=== PATIENT | male | born 1995 | race African-American/Black ===

== ENCOUNTER 2019-05-16 09:41 | Inpatient (IN) | payer OTHER ==
[2019-05-16 10:05] VITALS: BMI 32.6
--- NOTE | 2019-05-16 10:26 | HP ---
CIWA Score Nausea/Vomitin-Mild Nausea/No Vomiting Muscle Tremors: 2 Anxiety: 3 Agitation: 3 Paroxysmal Sweats: No Perspiration Orientation: 0-Oriented Tacttile Disturbances: 1-Very Mild Itch/Numbness Auditory Disturbances: 0-None Visual Disturbances: 1-Very Mild Sensitivity Headache: 2-Mild CIWA-Ar Total Score: 13 - Admission Criteria OASAS Guidelines: Admission for Medically Managed Detox: Requires at least one of the followin. CIWA greater than 12 2. Seizures within the past 24 hours 3. Delirium tremens within the past 24 hours 4. Hallucinations within the past 24 hours 5. Acute intervention needed for co occurring medical disorder 6. Acute intervention needed for co occurring psychiatric disorder 7. Severe withdrawal that cannot be handled at a lower level of care (continued vomiting, continued diarrhea, abnormal vital signs) requiring intravenous medication and/or fluids 8. Admission ROS BHS - HPI Chief Complaint: i need help to stop drinking alcohol Allergies/Adverse Reactions: Allergies Allergy/AdvReac Type Severity Reaction Status Date / Time milk Allergy Severe Verified 05/16/19 09:55 peanut Allergy Severe Verified 05/16/19 09:55 Penicillins Allergy Rash Verified 05/16/19 09:55 History of Present Illness: this 24 years old male with alcohol dependence,seeking detox,withdrawal symptom, first visit to this facility had previous admission at [facility] in 2017 history of asthma eczema nicotine dependence denied seizure,denied syncope longest period 10 months plan for out patient program after detox homeless,unemployed Exam Limitations: No Limitations - Ebola screening Have you traveled outside of the country in the last 21 days: No Have you had contact with anyone from an Ebola affected area: No Do you have a fever: No - Review of Systems Constitutional: Night Sweats EENT: reports: Nose Congestion Respiratory: reports: No Symptoms reported Cardiac: reports: No Symptoms Reported GI: reports: Diarrhea, Nausea, Abdominal cramping : reports: No Symptoms Reported Musculoskeletal: reports: Back Pain, Muscle Pain Integumentary: reports: Dryness Neuro: reports: Headache, Tremors Endocrine: reports: No Symptoms Reported Hematology: reports: No Symptoms Reported Psychiatric: reports: No Sypmtoms Reported, Judgement Intact, Mood/Affect Appropiate, Orientated x3, Depressed, other (adhd no med) Patient History - Patient Medical History Hx Anemia: No Hx Asthma: Yes (on albuterol inhaler) Hx Chronic Obstructive Pulmonary Disease (COPD): No Hx Cancer: No Hx Cardiac Disorders: No Hx Congestive Heart Failure: No Hx Hypertension: No Hx Hypercholesterolemia: No Hx Pacemaker: No HX Cerebrovascular Accident: No Hx Seizures: No Hx Dementia: No Hx Diabetes: No Hx Gastrointestinal Disorders: No Hx Liver Disease: No Hx Genitourinary Disorders: No Hx Sexually Transmitted Disorders: No Hx Renal Disease (ESRD): No Hx Thyroid Disease: No Hx Human Immunodeficiency Virus (HIV): No (last 12/01 negative) Hx Hepatitis C: No Hx Depression: Yes (no med) Hx Suicide Attempt: No Hx Bipolar Disorder: No Hx Schizophrenia: No Other Medical History: no sucidal,no homicidal,eczema - Patient Surgical History Past Surgical History: No - PPD History Previous Implant?: Yes Documented Results: Negative w/o proof Implanted On Prior [facility] Admission?: No PPD to be Administered?: Yes - Smoking Cessation Smoking history: Current every day smoker Have you smoked in the past 12 months: Yes Aproximately how many cigarettes per day: 2 Cigars Per Day: 0 Hx Chewing Tobacco Use: No Initiated information on smoking cessation: Yes 'Breaking Loose' booklet given: 05/16/19 - Substance & Tx. History Hx Alcohol Use: Yes Hx Substance Use: No Substance Use Type: Alcohol Hx Substance Use Treatment: Yes ([facility]) - Substances abused Alcohol Substance route: Oral Frequency: Daily Amount used: 1 liter of vodka Age of first use: 12 Date of last use: 05/16/19 Admission Physical Exam BHS - Vital Signs Vital Signs: Vital Signs - 24 hr 05/16/19 05/16/19 09:54 10:09 Temperature 97.0 F L 97.0 F L Pulse Rate 73 73 Respiratory 20 20 Rate Blood Pressure 139/78 139/78 - Physical General Appearance: Yes: Moderate Distress, Tremorous, Irritable, Sweating, Anxious HEENTM: Yes: Normal ENT Inspection, GOLDEN, Pharynx Normal Respiratory: Yes: Lungs Clear, Normal Breath Sounds, No Respiratory Distress Neck: Yes: Supple, Trachea in good position Breast: Yes: Within Normal Limits Cardiology: Yes: Within Normal Limits, Regular Rhythm, Regular Rate, S1, S2 Abdominal: Yes: Within Normal Limits, Normal Bowel Sounds, Non Tender, Flat, Soft Genitourinary: Yes: Within Normal Limits Back: Yes: Muscle Spasm Extremities: Yes: Tremors Neurological: Yes: metal cutter II-XII NML intact, Fully Oriented, Alert Integumentary: Yes: Dry, Other (eczema) Lymphatic: Yes: Within Normal Limits - Diagnostic (1) Alcohol dependence with uncomplicated withdrawal Current Visit: Yes Status: Acute (2) Alcohol dependence with uncomplicated intoxication Current Visit: Yes Status: Acute (3) Asthma Current Visit: Yes Status: Acute (4) Eczema Current Visit: Yes Status: Acute (5) ADHD Current Visit: Yes Status: Acute (6) Depression Current Visit: Yes Status: Acute Cleared for Admission S - Detox or Rehab [facility] Level of Care: Medically Managed Detox Regimen/Protocol: Librium Breathalyzer - Breathalyzer Breathalyzer: 0.232 Urine Drug Screen - Test Device Lot number: [id number] Expiration date: 01/13/20 - Control Is test valid?: Yes - Results Drug screen NEGATIVE: Yes Inpatient Rehab Admission - Rehab Decision to Admit Inpatient rehab admission?: No
[2019-05-16] MEDS ORDERED: BISMUTH SUBSALICYLATE 262 MG/15 ML BTL PO PRN (10:36)
[2019-05-16] MEDS ORDERED: MENTHOL/PHENOL 1 EACH UD MM PRN (10:36)
[2019-05-16] MEDS ORDERED: METHOCARBAMOL 500 MG TABLET PO PRN (10:36)
[2019-05-16] MEDS ORDERED: IBUPROFEN 400 MG TABLET (FP) PO PRN (10:36)
[2019-05-16] MEDS ORDERED: MAGNESIUM CITRATE 300 ML BOTTLE PO PRN (10:36)
[2019-05-16] MEDS ORDERED: MAGNESIUM HYDROX 2400MG/30ML ORAL SUSPENSION 30 ML CUP PO PRN (10:36)
[2019-05-16] MEDS ORDERED: chlordiazePOXIDE HCL 25 MG CAPSULE PO PRN (10:36)
[2019-05-16] MEDS ORDERED: ACETAMINOPHEN 325 MG TABLET (FP) PO PRN ×2 (10:36)
[2019-05-16] MEDS ORDERED: MAG HYDROX/AL HYDROX/SIMETH 30 ML UNIT-DOSE CUP PO PRN (10:36)
[2019-05-16] MEDS ORDERED: hydrOXYzine PAMOATE 25 MG CAPSULE (FP) PO PRN (10:36)
[2019-05-16] MEDS ORDERED: TRIAMCINOLONE ACET 0.1% OINT 15 GM TUBE TP SCH (10:45)
[2019-05-16] MEDS: TRIAMCINOLONE ACET 0.1% OINT 15 GM TUBE TP SCH ×2 (14:43→22:13)
[2019-05-16 16:30] LABS: HEMATOCRIT 39.8 % (35.4-49); HEMOGLOBIN 13.7 GM/dL (11.7-16.9); MCH 31.9 pg (25.7-33.7); MCHC 34.4 g/dl (32.0-35.9); MEAN CELL VOLUME 92.8 fl (80-96); MEAN PLT VOLUME 8.2 fl (7.5-11.1); PLATELET COUNT 257 K/MM3 (134-434); RBC 4.29 M/mm3 (4.00-5.60); WHITE BLOOD COUNT 6.8 K/mm3 (4.0-10.0)
[2019-05-16 16:54] LABS: ALBUMIN 3.5 g/dl (3.4-5.0); BILIRUBIN,TOTAL 0.3 mg/dL (0.2-1); CALCIUM 8.7 mg/dL (8.5-10.1); CREATININE 0.9 mg/dL (0.55-1.3); TOT PROT 7.7 g/dl (6.4-8.2)
[2019-05-16] MEDS: chlordiazePOXIDE HCL 25 MG CAPSULE PO SCH ×2 (17:06→22:13)
[2019-05-16 18:11] LABS: SICKLE CELL SCREEN NEGATIVE (NEGATIVE)
[2019-05-16] MEDS: THIAMINE HCL 100 MG TABLET (FP) PO SCH (22:13)
[2019-05-16] MEDS: MELATONIN 5 MG TABLETS PO PRN (22:14)
[2019-05-17] MEDS: chlordiazePOXIDE HCL 25 MG CAPSULE PO SCH ×4 (05:14→22:09)
[2019-05-17] MEDS: TRIAMCINOLONE ACET 0.1% OINT 15 GM TUBE TP SCH ×2 (10:18→22:08)
[2019-05-17] MEDS: PRENATAL VITAMINS W/ FOLIC ACID TABLET (FP) PO SCH (10:18)
--- NOTE | 2019-05-17 10:30 | PN ---
S CIWA - CIWA Score Nausea/Vomitin-No Nausea/No Vomiting Muscle Tremors: None Anxiety: 3 Agitation: 0-Normal Activity Paroxysmal Sweats: 3 Orientation: 0-Oriented Tacttile Disturbances: 1-Very Mild Itch/Numbness Auditory Disturbances: 0-None Visual Disturbances: 0-None Headache: 2-Mild CIWA-Ar Total Score: 9 S Progress Note (SOAP) Subjective: c/o anxiety, headache, interrupted sleep, and sweats. Objective: 05/17/19 10:29 Vital Signs 05/17/19 05/17/19 05/17/19 03:30 06:05 09:08 Temperature 97.5 F L 97.1 F L Pulse Rate 77 80 Respiratory 18 18 18 Rate Blood Pressure 137/77 139/82 Lab Results WBC 6.8 K/mm3 (4.0-10.0) 05/16/19 11:00 RBC 4.29 M/mm3 (4.00-5.60) 05/16/19 11:00 Hgb 13.7 GM/dL (11.7-16.9) 05/16/19 11:00 Hct 39.8 % (35.4-49) 05/16/19 11:00 MCV 92.8 fl (80-96) 05/16/19 11:00 MCHC 34.4 g/dl (32.0-35.9) 05/16/19 11:00 RDW 19.0 % (11.9-15.9) H 05/16/19 11:00 Plt Count 257 K/MM3 (134-434) 05/16/19 11:00 Sodium 134 mmol/L (136-145) L 05/16/19 11:00 Potassium 3.0 mmol/L (3.5-5.1) L 05/16/19 11:00 Chloride 95 mmol/L (98-107) L 05/16/19 11:00 Carbon Dioxide 26 mmol/L (21-32) 05/16/19 11:00 Anion Gap 14 MMOL/L (8-16) 05/16/19 11:00 BUN 5.0 mg/dL (7-18) L 05/16/19 11:00 Creatinine 0.9 mg/dL (0.55-1.3) 05/16/19 11:00 Random Glucose 85 mg/dL (74-106) 05/16/19 11:00 Calcium 8.7 mg/dL (8.5-10.1) 05/16/19 11:00 Labs noted. Assessment: 05/17/19 10:30 AOX3, in no acute respiratory distress. Full ROM, ambulating in the unit. Withdrawal symptoms. Plan: continue detox.
[2019-05-17] MEDS: THIAMINE HCL 100 MG TABLET (FP) PO SCH (22:09)
[2019-05-17] MEDS: MELATONIN 5 MG TABLETS PO PRN (22:09)
[2019-05-18] MEDS: chlordiazePOXIDE HCL 25 MG CAPSULE PO SCH ×4 (05:21→22:30)
[2019-05-18] MEDS: PRENATAL VITAMINS W/ FOLIC ACID TABLET (FP) PO SCH (10:09)
[2019-05-18] MEDS: TRIAMCINOLONE ACET 0.1% OINT 15 GM TUBE TP SCH ×2 (10:09→22:24)
--- NOTE | 2019-05-18 13:33 | PN ---
[facility] CIWA - CIWA Score Nausea/Vomitin-No Nausea/No Vomiting Muscle Tremors: 2 Anxiety: 3 Agitation: 2 Paroxysmal Sweats: 1-Minimal Palms Moist Orientation: 0-Oriented Tacttile Disturbances: 0-None Auditory Disturbances: 0-None Visual Disturbances: 0-None Headache: 0-None Present CIWA-Ar Total Score: 8 S Progress Note (SOAP) Subjective: 24 years old male admitted on 05/16/19 for alcohol withdrawal sx management treated with librium detox regimen patient tolerated well ambulating on hallway attend groups and meetings Objective: 05/18/19 13:32 Vital Signs Temperature 98.5 F 05/18/19 09:23 Pulse Rate 68 05/18/19 09:23 Respiratory Rate 18 05/18/19 09:23 Blood Pressure 125/79 05/18/19 09:23 O2 Sat by Pulse Oximetry (%) Laboratory Last Values WBC 6.8 K/mm3 (4.0-10.0) 05/16/19 11:00 RBC 4.29 M/mm3 (4.00-5.60) 05/16/19 11:00 Hgb 13.7 GM/dL (11.7-16.9) 05/16/19 11:00 Hct 39.8 % (35.4-49) 05/16/19 11:00 MCV 92.8 fl (80-96) 05/16/19 11:00 MCH 31.9 pg (25.7-33.7) 05/16/19 11:00 MCHC 34.4 g/dl (32.0-35.9) 05/16/19 11:00 RDW 19.0 % (11.9-15.9) H 05/16/19 11:00 Plt Count 257 K/MM3 (134-434) 05/16/19 11:00 MPV 8.2 fl (7.5-11.1) 05/16/19 11:00 Sickle Cell Screen Negative (NEGATIVE) 05/16/19 11:00 Sodium 134 mmol/L (136-145) L 05/16/19 11:00 Potassium 3.0 mmol/L (3.5-5.1) L 05/16/19 11:00 Chloride 95 mmol/L (98-107) L 05/16/19 11:00 Carbon Dioxide 26 mmol/L (21-32) 05/16/19 11:00 Anion Gap 14 MMOL/L (8-16) 05/16/19 11:00 BUN 5.0 mg/dL (7-18) L 05/16/19 11:00 Creatinine 0.9 mg/dL (0.55-1.3) 05/16/19 11:00 Est GFR (CKD-EPI)AfAm 137.10 05/16/19 11:00 Est GFR (CKD-EPI)NonAf 118.29 05/16/19 11:00 Random Glucose 85 mg/dL (74-106) 05/16/19 11:00 Calcium 8.7 mg/dL (8.5-10.1) 05/16/19 11:00 Total Bilirubin 0.3 mg/dL (0.2-1) 05/16/19 11:00 AST 27 U/L (15-37) 05/16/19 11:00 ALT 25 U/L (13-61) 05/16/19 11:00 Alkaline Phosphatase 110 U/L (45-117) 05/16/19 11:00 Total Protein 7.7 g/dl (6.4-8.2) 05/16/19 11:00 Albumin 3.5 g/dl (3.4-5.0) 05/16/19 11:00 RPR Titer Nonreactive (NONREACTIVE) 05/16/19 11:00 lab noted low K+ K+ supplement 05/18/19 13:33 05/18/19 13:35 repeat K+ 05/19/19 Assessment: 05/18/19 13:36 alcohol withdrawal sx Plan: continue librium detox regimen
[2019-05-18 14:20] LABS: PH,URINE 5.5 (5.0-8.0); URINE APPEARANCE TURBID; URINE BILIRUBIN NEGATIVE (NEGATIVE); URINE COLOR YELLOW; URINE GLUCOSE (UA) NEGATIVE (NEGATIVE); URINE KETONE TRACE (NEGATIVE); URINE LEUK ESTERASE NEGATIVE (NEGATIVE); URINE NITRITE NEGATIVE (NEGATIVE); URINE PROTEIN TRACE (NEGATIVE)
[2019-05-18] MEDS: POTASSIUM CHLORIDE ORAL LIQUID 20 MEQ/15 ML PO SCH ×2 (15:24→22:21)
[2019-05-18] MEDS: THIAMINE HCL 100 MG TABLET (FP) PO SCH (22:21)
[2019-05-18] MEDS: MELATONIN 5 MG TABLETS PO PRN (22:21)
[2019-05-18] MEDS: ALBUTEROL SO4 8 GM HFA INHALER IH PRN (23:16)
[2019-05-19] MEDS ORDERED: chlordiazePOXIDE HCL 10 MG CAPSULE PO PRN
[2019-05-19] MEDS: chlordiazePOXIDE HCL 10 MG CAPSULE PO SCH ×4 (05:40→22:10)
[2019-05-19] MEDS: PRENATAL VITAMINS W/ FOLIC ACID TABLET (FP) PO SCH (10:07)
[2019-05-19] MEDS: TRIAMCINOLONE ACET 0.1% OINT 15 GM TUBE TP SCH ×5 (10:08→22:11)
--- NOTE | 2019-05-19 10:21 | PN ---
S CIWA - CIWA Score Nausea/Vomitin-No Nausea/No Vomiting Muscle Tremors: 2 Anxiety: 2 Agitation: 2 Paroxysmal Sweats: No Perspiration Orientation: 0-Oriented Tacttile Disturbances: 0-None Auditory Disturbances: 0-None Visual Disturbances: 0-None Headache: 0-None Present CIWA-Ar Total Score: 6 BHS Progress Note (SOAP) Subjective: 24 years old male admitted on 05/16/19 for alcohol withdrawal sx management treated with librium detox regimen patient tolerated well K+ within normal limited request t0 be seen by a psychiatrist for long history of depression eczema both arms and legs requests cream qid enough for body surface Objective: 05/19/19 10:20 Vital Signs Temperature 97.4 F L 05/19/19 09:22 Pulse Rate 77 05/19/19 09:22 Respiratory Rate 18 05/19/19 09:22 Blood Pressure 135/77 05/19/19 09:22 O2 Sat by Pulse Oximetry (%) Laboratory Last Values WBC 6.8 K/mm3 (4.0-10.0) 05/16/19 11:00 RBC 4.29 M/mm3 (4.00-5.60) 05/16/19 11:00 Hgb 13.7 GM/dL (11.7-16.9) 05/16/19 11:00 Hct 39.8 % (35.4-49) 05/16/19 11:00 MCV 92.8 fl (80-96) 05/16/19 11:00 MCH 31.9 pg (25.7-33.7) 05/16/19 11:00 MCHC 34.4 g/dl (32.0-35.9) 05/16/19 11:00 RDW 19.0 % (11.9-15.9) H 05/16/19 11:00 Plt Count 257 K/MM3 (134-434) 05/16/19 11:00 MPV 8.2 fl (7.5-11.1) 05/16/19 11:00 Sickle Cell Screen Negative (NEGATIVE) 05/16/19 11:00 Sodium 134 mmol/L (136-145) L 05/16/19 11:00 Potassium 4.3 mmol/L (3.5-5.1) 05/19/19 08:00 Chloride 95 mmol/L (98-107) L 05/16/19 11:00 Carbon Dioxide 26 mmol/L (21-32) 05/16/19 11:00 Anion Gap 14 MMOL/L (8-16) 05/16/19 11:00 BUN 5.0 mg/dL (7-18) L 05/16/19 11:00 Creatinine 0.9 mg/dL (0.55-1.3) 05/16/19 11:00 Est GFR (CKD-EPI)AfAm 137.10 05/16/19 11:00 Est GFR (CKD-EPI)NonAf 118.29 05/16/19 11:00 Random Glucose 85 mg/dL (74-106) 05/16/19 11:00 Calcium 8.7 mg/dL (8.5-10.1) 05/16/19 11:00 Total Bilirubin 0.3 mg/dL (0.2-1) 05/16/19 11:00 AST 27 U/L (15-37) 05/16/19 11:00 ALT 25 U/L (13-61) 05/16/19 11:00 Alkaline Phosphatase 110 U/L (45-117) 05/16/19 11:00 Total Protein 7.7 g/dl (6.4-8.2) 05/16/19 11:00 Albumin 3.5 g/dl (3.4-5.0) 05/16/19 11:00 Urine Color Yellow 05/18/19 03:27 Urine Appearance Turbid 05/18/19 03:27 Urine pH 5.5 (5.0-8.0) 05/18/19 03:27 Ur Specific [place] 1.032 (1.010-1.035) 05/18/19 03:27 Urine Protein Trace (NEGATIVE) 05/18/19 03:27 Urine Glucose (UA) Negative (NEGATIVE) 05/18/19 03:27 Urine Ketones Trace (NEGATIVE) H 05/18/19 03:27 Urine Blood Negative (NEGATIVE) 05/18/19 03:27 Urine Nitrite Negative (NEGATIVE) 05/18/19 03:27 Urine Bilirubin Negative (NEGATIVE) 05/18/19 03:27 Urine Urobilinogen 1.0 mg/dL (0.2-1.0) 05/18/19 03:27 Ur Leukocyte Esterase Negative (NEGATIVE) 05/18/19 03:27 RPR Titer Nonreactive (NONREACTIVE) 05/16/19 11:00 lab noted K+ within normal Assessment: 05/19/19 10:20 alcohol withdrawal sx Plan: continue librium detox regimen
[2019-05-19] MEDS: ALBUTEROL SO4 8 GM HFA INHALER IH PRN (21:58)
[2019-05-19] MEDS: THIAMINE HCL 100 MG TABLET (FP) PO SCH (22:09)
[2019-05-19] MEDS: traZODone HCL 50 MG TABLET (FP) PO SCH (22:10)
[2019-05-20] MEDS: chlordiazePOXIDE HCL 10 MG CAPSULE PO SCH ×2 (05:23→17:22)
[2019-05-20] MEDS: PRENATAL VITAMINS W/ FOLIC ACID TABLET (FP) PO SCH (10:14)
[2019-05-20] MEDS: TRIAMCINOLONE ACET 0.1% OINT 15 GM TUBE TP SCH ×4 (10:14→22:11)
--- NOTE | 2019-05-20 11:57 | PN ---
S CIWA - CIWA Score Nausea/Vomitin-No Nausea/No Vomiting Muscle Tremors: 1-None Visible, but [place] Anxiety: 2 Agitation: 1-Slight > Activity Paroxysmal Sweats: No Perspiration Orientation: 0-Oriented Tacttile Disturbances: 0-None Auditory Disturbances: 0-None Visual Disturbances: 0-None Headache: 0-None Present CIWA-Ar Total Score: 4 BHS Progress Note (SOAP) Subjective: 24 years old male admitted on 05/16/19 for alcohol withdrawal sx management treated with librium detox regimen patient tolerated well feeling less tremor mild anxiety Objective: 05/20/19 11:56 Vital Signs Temperature 96.9 F L 05/20/19 09:18 Pulse Rate 84 05/20/19 09:18 Respiratory Rate 18 05/20/19 09:18 Blood Pressure 141/78 05/20/19 09:18 O2 Sat by Pulse Oximetry (%) Laboratory Last Values WBC 6.8 K/mm3 (4.0-10.0) 05/16/19 11:00 RBC 4.29 M/mm3 (4.00-5.60) 05/16/19 11:00 Hgb 13.7 GM/dL (11.7-16.9) 05/16/19 11:00 Hct 39.8 % (35.4-49) 05/16/19 11:00 MCV 92.8 fl (80-96) 05/16/19 11:00 MCH 31.9 pg (25.7-33.7) 05/16/19 11:00 MCHC 34.4 g/dl (32.0-35.9) 05/16/19 11:00 RDW 19.0 % (11.9-15.9) H 05/16/19 11:00 Plt Count 257 K/MM3 (134-434) 05/16/19 11:00 MPV 8.2 fl (7.5-11.1) 05/16/19 11:00 Sickle Cell Screen Negative (NEGATIVE) 05/16/19 11:00 Sodium 134 mmol/L (136-145) L 05/16/19 11:00 Potassium 4.3 mmol/L (3.5-5.1) 05/19/19 08:00 Chloride 95 mmol/L (98-107) L 05/16/19 11:00 Carbon Dioxide 26 mmol/L (21-32) 05/16/19 11:00 Anion Gap 14 MMOL/L (8-16) 05/16/19 11:00 BUN 5.0 mg/dL (7-18) L 05/16/19 11:00 Creatinine 0.9 mg/dL (0.55-1.3) 05/16/19 11:00 Est GFR (CKD-EPI)AfAm 137.10 05/16/19 11:00 Est GFR (CKD-EPI)NonAf 118.29 05/16/19 11:00 Random Glucose 85 mg/dL (74-106) 05/16/19 11:00 Calcium 8.7 mg/dL (8.5-10.1) 05/16/19 11:00 Total Bilirubin 0.3 mg/dL (0.2-1) 05/16/19 11:00 AST 27 U/L (15-37) 05/16/19 11:00 ALT 25 U/L (13-61) 05/16/19 11:00 Alkaline Phosphatase 110 U/L (45-117) 05/16/19 11:00 Total Protein 7.7 g/dl (6.4-8.2) 05/16/19 11:00 Albumin 3.5 g/dl (3.4-5.0) 05/16/19 11:00 Urine Color Yellow 05/18/19 03:27 Urine Appearance Turbid 05/18/19 03:27 Urine pH 5.5 (5.0-8.0) 05/18/19 03:27 Ur Specific [place] 1.032 (1.010-1.035) 05/18/19 03:27 Urine Protein Trace (NEGATIVE) 05/18/19 03:27 Urine Glucose (UA) Negative (NEGATIVE) 05/18/19 03:27 Urine Ketones Trace (NEGATIVE) H 05/18/19 03:27 Urine Blood Negative (NEGATIVE) 05/18/19 03:27 Urine Nitrite Negative (NEGATIVE) 05/18/19 03:27 Urine Bilirubin Negative (NEGATIVE) 05/18/19 03:27 Urine Urobilinogen 1.0 mg/dL (0.2-1.0) 05/18/19 03:27 Ur Leukocyte Esterase Negative (NEGATIVE) 05/18/19 03:27 RPR Titer Nonreactive (NONREACTIVE) 05/16/19 11:00 lab noted Assessment: 05/20/19 11:57 alcohol withdrawal sx Plan: continue librium detox regimen
--- NOTE | 2019-05-20 14:13 | CONSULT ---
[facility] Psychiatric Consult - Data Date of interview: 05/20/19 Admission source: [facility] Identifying data: First admission to [facility] for this 24 y/o AA male self- referred for detoxification (BEST issues : alcohol, nicotine). Interviewed at [address] [place] [address]. Patient is single, no dependents, domiciled and employed as a cook. Substance Abuse History: Discussed with the patient. Details in current [facility] report as follows : Smoking history: Current every day smoker. Have you smoked in the past 12 months: Yes. Aproximately how many cigarettes per day: 2. Cigars Per Day: 0. Hx Chewing Tobacco Use: No. Initiated information on smoking cessation: Yes. 'Breaking Loose' booklet given: 05/16/19. - Substance & Tx. History. Hx Alcohol Use: Yes. Hx Substance Use: No. Substance Use Type : Alcohol. Hx Substance Use Treatment: Yes ([facility] 2017). - Substances abused. Alcohol. Substance route: Oral. Frequency: Daily. Amount used: 1 liter of vodka. Age of first use: 12. Date of last use: 05/16/19 Medical History: Bronchial asthma. Psychiatric History: Patient denies history of psychiatric hospitalizations but admits to [facility] diagnosed, in the past, with ADHD. No report of OPD care. Mr Gil indicates that he is prescribed trazodone 50 mg/hs for insomnia ([facility] care provider). Denies history of suicide attempts. Physical/Sexual Abuse/Trauma History: Patient denies. Additional Comment: Negative toxicology. Mental Status Exam - Mental Status Exam Alert and Oriented to: Time, Place, Person Cognitive Function: Good Patient Appearance: Well Groomed (overweight) Mood: Hopeful, Euthymic Affect: Appropriate, Normal Range Patient Behavior: Appropriate, Cooperative Speech Pattern: Clear, Appropriate Voice Loudness: Normal Thought Process: Intact, Goal Oriented Thought Disorder: Not Present Hallucinations: Denies Suicidal Ideation: Denies Homicidal Ideation: Denies Insight/Judgement: Fair Sleep: Poorly, Difficulty falling asleep Appetite: Good Muscle strength/Tone: Normal Gait/Station: Normal Psychiatric Findings - Problem List ([place] 1, 2,3) (1) Alcohol dependence with uncomplicated withdrawal Current Visit: Yes Status: Acute (2) Nicotine dependence Current Visit: Yes Status: Chronic (3) ADHD Current Visit: Yes Status: Chronic Comment: As per self-report. (4) Insomnia Current Visit: Yes Status: Chronic - Initial Treatment Plan Initial Treatment Plan: Psychoeducation. Sleep hygiene. Detoxification. Trazodone 50 mg po hs. Patient is made aware of risk of priapism. Mr Cordero agrees to this plan of care. Gave verbal consent to Observation.
[2019-05-20] MEDS: THIAMINE HCL 100 MG TABLET (FP) PO SCH (22:11)
[2019-05-20] MEDS: traZODone HCL 50 MG TABLET (FP) PO SCH (22:11)
[2019-05-21] MEDS ORDERED: chlordiazePOXIDE HCL 10 MG CAPSULE PO ONE (05:00)
[2019-05-21 09:25] VITALS: BP 133/79; PULSE 78; TEMP 97.7
--- NOTE | 2019-05-21 10:26 | DS ---
[facility] Detox Discharge Summary Admission Date: 05/16/19 Discharge Date: 05/21/19 - History Present History: Alcohol Dependence Additional Comments: 24 years old male admitted on 05/16/19 for alcohol withdrawal sx management treated with librium detox regimen patient tolerated well patient is alert oriented x 3 respiratory clear lung bilaterally on auscultation abdomen soft round obese no rebound tenderness skin warm and dry - Physical Exam Results Vital Signs: Vital Signs Temperature 97.7 F 05/21/19 09:24 Pulse Rate 78 05/21/19 09:24 Respiratory Rate 18 05/21/19 09:24 Blood Pressure 133/79 05/21/19 09:24 O2 Sat by Pulse Oximetry (%) Pertinent Admission Physical Exam Findings: alcohol withdrawal sx Laboratory Last Values WBC 6.8 K/mm3 (4.0-10.0) 05/16/19 11:00 RBC 4.29 M/mm3 (4.00-5.60) 05/16/19 11:00 Hgb 13.7 GM/dL (11.7-16.9) 05/16/19 11:00 Hct 39.8 % (35.4-49) 05/16/19 11:00 MCV 92.8 fl (80-96) 05/16/19 11:00 MCH 31.9 pg (25.7-33.7) 05/16/19 11:00 MCHC 34.4 g/dl (32.0-35.9) 05/16/19 11:00 RDW 19.0 % (11.9-15.9) H 05/16/19 11:00 Plt Count 257 K/MM3 (134-434) 05/16/19 11:00 MPV 8.2 fl (7.5-11.1) 05/16/19 11:00 Sickle Cell Screen Negative (NEGATIVE) 05/16/19 11:00 Sodium 134 mmol/L (136-145) L 05/16/19 11:00 Potassium 4.3 mmol/L (3.5-5.1) 05/19/19 08:00 Chloride 95 mmol/L (98-107) L 05/16/19 11:00 Carbon Dioxide 26 mmol/L (21-32) 05/16/19 11:00 Anion Gap 14 MMOL/L (8-16) 05/16/19 11:00 BUN 5.0 mg/dL (7-18) L 05/16/19 11:00 Creatinine 0.9 mg/dL (0.55-1.3) 05/16/19 11:00 Est GFR (CKD-EPI)AfAm 137.10 05/16/19 11:00 Est GFR (CKD-EPI)NonAf 118.29 05/16/19 11:00 Random Glucose 85 mg/dL (74-106) 05/16/19 11:00 Calcium 8.7 mg/dL (8.5-10.1) 05/16/19 11:00 Total Bilirubin 0.3 mg/dL (0.2-1) 05/16/19 11:00 AST 27 U/L (15-37) 05/16/19 11:00 ALT 25 U/L (13-61) 05/16/19 11:00 Alkaline Phosphatase 110 U/L (45-117) 05/16/19 11:00 Total Protein 7.7 g/dl (6.4-8.2) 05/16/19 11:00 Albumin 3.5 g/dl (3.4-5.0) 05/16/19 11:00 Urine Color Yellow 05/18/19 03:27 Urine Appearance Turbid 05/18/19 03:27 Urine pH 5.5 (5.0-8.0) 05/18/19 03:27 Ur Specific [place] 1.032 (1.010-1.035) 05/18/19 03:27 Urine Protein Trace (NEGATIVE) 05/18/19 03:27 Urine Glucose (UA) Negative (NEGATIVE) 05/18/19 03:27 Urine Ketones Trace (NEGATIVE) H 05/18/19 03:27 Urine Blood Negative (NEGATIVE) 05/18/19 03:27 Urine Nitrite Negative (NEGATIVE) 05/18/19 03:27 Urine Bilirubin Negative (NEGATIVE) 05/18/19 03:27 Urine Urobilinogen 1.0 mg/dL (0.2-1.0) 05/18/19 03:27 Ur Leukocyte Esterase Negative (NEGATIVE) 05/18/19 03:27 RPR Titer Nonreactive (NONREACTIVE) 05/16/19 11:00 lab noted patient agrees to bringing in lab report to his community program for follow up - Treatment Hospital Course: Detox Protocol Followed, Detoxed Safely, Responded well, Discharged Condition Good, Rehab Referral Accepted Patient has Accepted a Rehab Referral to: community treatment program - Medication Discharge Medications: Ambulatory Orders Albuterol Sulfate Inhaler - [Ventolin HFA Inhaler -] 1 - 2 inh PO QID 05/16/19 Triamcinolone 0.1% Ointment [Aristocort 0.1% Ointment -] 1 applic TP BID traZODone HCL [Trazodone HCl] 50 mg PO HS 05/19/19 - Diagnosis (1) Alcohol dependence with uncomplicated withdrawal Current Visit: Yes Status: Acute (2) Asthma Current Visit: Yes Status: Chronic Qualifiers: Asthma severity: mild Asthma persistence: intermittent Asthma complication type: with status asthmaticus Qualified Code(s): J45.22 - Mild intermittent asthma with status asthmaticus (3) Eczema Current Visit: Yes Status: Chronic Qualifiers: Eczema type: unspecified Qualified Code(s): L30.9 - Dermatitis, unspecified (4) Nicotine dependence Current Visit: Yes Status: Acute Qualifiers: Nicotine product type: cigarettes Substance use status: in withdrawal Qualified Code(s): F17.213 - Nicotine dependence, cigarettes, with withdrawal - AMA Did Patient Leave Against Medical Advice: No CIWA Score - CIWA Score Nausea/Vomitin-No Nausea/No Vomiting Muscle Tremors: None Anxiety: 1-Mildly Anxious Agitation: 0-Normal Activity Paroxysmal Sweats: No Perspiration Orientation: 0-Oriented Tacttile Disturbances: 0-None Auditory Disturbances: 0-None Visual Disturbances: 0-None Headache: 0-None Present CIWA-Ar Total Score: 1
== END 2019-05-21 09:00 | disposition home or self-care (01) | DRG 775 ==
LOC: EDBD → YASAS 09:41 → Y3N 11:01
PROVIDERS: ADMIT Allergy & Immunology; ATTEND Allergy & Immunology
PROC: HZ2ZZZZ Detoxification Services for Substance Abuse Treatment (ICD-10-PCS; principal; 2019-05-16)
DX: F10.20 Alcohol dependence, uncomplicated (principal); F17.220 Nicotine dependence, chewing tobacco, uncomplicated; F90.9 Attention-deficit hyperactivity disorder, unspecified type; F32.9 Major depressive disorder, single episode, unspecified; J45.22 Mild intermittent asthma with status asthmaticus; L30.9 Dermatitis, unspecified; G47.00 Insomnia, unspecified; Z88.0 Allergy status to penicillin; Z91.010 Allergy to peanuts; Z91.011 Allergy to milk products; Z59.0 Homelessness
CPT/HCPCS: 36415; 80053; 81003; 84132; 85027; 85660; 86593